=== PATIENT | female | born 1950 | race Caucasian/White ===

== ENCOUNTER → 2024-08-09 | Day surgery (SDC) | payer MEDICARE ==
[~2024-08-09] MED LIST: ACETAMINOPHEN 1000 MG/100 ML 100 ML IV ONE; BACLOFEN20 MG PO; COLLAGEN PEPTIDE PO; DEXAMETHASONE SOD PHOS INJ 4 MG/ML SDV ONE; ELIQUIS5 MG PO; FENTANYL CITRATE/PF 100MCG/2 ML INJ ONE; FLONASE ALLERG9.9 ML INH; LIDOCAINE HCL 2% LOCAL INJ 5 ML SDV VIAL INJ ONE; LYRICA100 MG PO; MAGNESIUM PO; METOCLOPRAMIDE HCL 10 MG/2ML VIAL ONE; ONDANSETRON HCL INJ 2MG/ML 2ML 2 MG/ML VIAL ONE; PREVAGEN PO; PROPOFOL IV EMULSION 10 MG/ML 20 ML VIAL ONE; VITAMIN C500 M6 PO
[2024-08-09] MEDS: LACTATED RINGER'S 1,000 ML ONE (07:43)
[2024-08-09 07:45] LABS: BASOPHILS % 0.4 % (0.0-1.0); EOSINOPHILS # (AUTO) 0.1 (0.0-0.4); EOSINOPHILS % 2.2 % (0.0-6.0); HEMATOCRIT 42.4 % (34.2-44.1); HEMOGLOBIN 13.3 g/dL (12.0-16.0); LYMPHOCYTES # (AUTO) 1.7 (1.0-3.2); LYMPHOCYTES % 32.7 % (18.0-39.1); MEAN CORPUSCULAR HEMOGLOBIN 30.3 pg (28-32); MEAN CORPUSCULAR HGB CONC 31.4 g/dL (31-35); MEAN CORPUSCULAR VOLUME 96.6 fL (81-99); MONOCYTES # (AUTO) 0.5 (0.2-0.8); MONOCYTES % 9.3 % (4.4-11.3); NEUTROPHILS # (AUTO) 2.8 (2.1-6.9); NEUTROPHILS % 55.2 % (38.7-80.0); PLATELET COUNT 173 x10e3/uL (140-360); RED BLOOD COUNT 4.39 x10e6/uL (3.6-5.1); RED CELL DISTRIBUTION WIDTH 12.3 % (11.7-14.4); WHITE BLOOD COUNT 5.04 x10e3/uL (4.8-10.8)
[2024-08-09 10:14] VITALS: TEMP 97.2
[2024-08-09] MEDS: FENTANYL CITRATE/PF 100MCG/2 ML INJ ONE (10:20)
[2024-08-09 11:00] VITALS: BP 144/81; PULSE 67; RESP 15; O2SAT 97
== END | disposition home or self-care (01) ==
LOC: OR 06:45
PROVIDERS: ATTEND Neurological Surgery
DX: G56.02 Carpal tunnel syndrome, left upper limb (principal); G47.33 Obstructive sleep apnea (adult) (pediatric); R01.1 Cardiac murmur, unspecified; M06.9 Rheumatoid arthritis, unspecified; I48.91 Unspecified atrial fibrillation; Z71.82 Exercise counseling; Z71.3 Dietary counseling and surveillance; Z79.02 Long term (current) use of antithrombotics/antiplatelets; Z79.1 Long term (current) use of non-steroidal anti-inflammatories (NSAID); Z68.33 Body mass index [BMI] 33.0-33.9, adult
CPT/HCPCS: 36415; 64721; 85025; J0131; J0690; J1100; J2003; J2405; J2704; J2765; J3010; J7121